=== PATIENT | male | born 1945 | race Caucasian/White ===

== ENCOUNTER 2017-12-15 11:07 | Inpatient (IN) ==
--- NOTE | 2017-12-15 11:23 | Anesthesia Evaluation PreOp ---
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: Syncope (Dizziness & passing out spells approx 5 weeks ago), Other (Chronic Pain/Neuropathy maintained on Lyrica, Flexeril) Other Medical History: GERD (maintained on Omeprazole), Other (VERY Hard of Hearing) Anesthesia History: No Prior Anesthetic Complications, Past Anesthesia (RLE Thrombectomy 07/2013, L-Total shoulder 1991, L-CTR, R-hand fracture, L-Fem-Pop, R-Fem-AK Pop bypass w/ PTFE, FEm-Pop 04/2015, Hernia repairs) Alcohol Use: none Drug use: none Medications and Allergies Albuterol Sulfate [Albuterol Inhaler] 2 puff IH Q4HR PRN 04/29/15 [History] Cholecalciferol (D-3) 1,000 unit PO DAILY 04/29/15 [History] Omeprazole [PriLOSEC] 20 mg PO DAILY 04/29/15 [History] Pregabalin [Lyrica] 200 mg PO TID PRN 04/29/15 [History] Albuterol Neb [Proventil Neb] 2.5 mg IH Q6H PRN 03/22/17 [History] Budesonide/Formoterol 80/4.5 [Symbicort 80/4.5] 1 puff IH BID 03/22/17 [History ] Cyclobenzaprine [Flexeril] 10 mg PO TID PRN 03/22/17 [History] Fluticasone Propionate Nasal [Flonase] 2 spr NS DAILY 03/22/17 [History] Lidocaine 4% CRM (LMX) [Lmx 4] 1 gm TP ONCE 03/22/17 [History] Metoprolol [Lopressor] 25 mg PO BID 03/22/17 [History] OxyCODONE Immed Rel [Roxicodone 10 MG] 10 mg PO 1200 03/22/17 [History] OxyCODONE Immed Rel [Roxicodone 10 MG] 20 mg PO QAM 03/22/17 [History] OxyCODONE Immed Rel [Roxicodone 10 MG] 20 mg PO QPM 03/22/17 [History] Phenazopyridine HCl [Pyridium] 200 mg PO TIDAC PRN #30 tab 03/22/17 [Rx] Pyridoxine (B-6) [Vitamin B-6] 50 mg PO DAILY 03/22/17 [History] Simvastatin [Zocor] 40 mg PO HS 03/22/17 [History] Tamsulosin [Flomax] 0.4 mg PO DAILY 03/22/17 [History] hydroCHLOROthiazide [Hydrochlorothiazide] 12.5 mg PO BID 03/22/17 [History] 3 Allergy/AdvReac Type Severity Reaction Status Date / Time Erythromycin Base Allergy See Verified 03/22/17 12:46 Comments Hydromorphone [From Dilaudid] AdvReac Mild LOWERS Verified 04/29/15 07:19 OXYGEN morphine AdvReac Mild Shakiness Verified 04/29/15 07:19 - Meds/Allergy Pre-op Review Medications Reviewed: Yes Allergies Reviewed: Yes Beta Blockers on Current Med List: Yes (Metoprolol) If Beta Blockers taken, Date/Time (Last Dose taken): 12/15/2017 @ 0700 Anesthesia Results - Labs Laboratory Tests 12/13/17 12/13/17 12/13/17 14:33 14:33 14:33 WBC 5.4 Hgb 13.2 Hct 41.4 Plt Count 188 PT 12.1 INR 1.1 APTT 31.7 Sodium 136 Potassium 4.1 Chloride 98 Carbon Dioxide 34 H BUN 10 Creatinine 0.92 Est GFR (Non-Af Amer) > 60 Glucose 105 - Imaging EKG: image reviewed (62bpm - SINUS RHYTHM Electronically Signed On 03-24-2017 6: 10:42 EDT by Kurt Ruffin DO) Anesthesia Exam O2 Sat Height 1.8 m Weight 75.75 kg O2 Sat Vital Signs Temp Pulse Resp BP Pulse Ox 98.1 F 86 18 138/80 94 12/15/17 11:26 12/15/17 11:26 12/15/17 11:26 12/15/17 11:26 12/15/17 11:26 Height: 5'11" Weight: 167# BMI = 23 NPO (# of Hours): MNOc - HEENT Pupil (Motor): Pupils equal, EOMI Mallampati: I Teeth: Edentulous Oral Opening: Greater than 3 - 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 SETTER LOC: Oriented LENS MOLD SETTER Motor: Normal RUE, Normal LUE, Normal RLE, Normal LLE, Normal Face LENS MOLD SETTER Sensory: Normal: RUE, LUE, RLE, LLE, Face - Cardiac Rhythm: Regular Murmur: None - Pulmonary Breath Sounds: bilateral Clear (Appreciably Diminished throughout) Respiratory Effort: Symmetrical Anesthesia Assess/Plan ASA Score: 3 (PAD, Smoker, HTN, Chol) Modified Rm Scale for Level of Consciousness: Cooperative, oriented, and tranquil Anesthetic Plan: General Autologous Blood: Yes Monitoring Plan: Standard Monitors, A-Line Recovery Plan: PACU Anes Supervising Prov Stmt: Pt seen/evaluated, R&B Discussed, questions answered and consent obtained. Zoie Ferrera MD
[2017-12-15] MEDS ORDERED: CeFAZolin Syr 2,000MG/20 ML 2,000 MG/20 ML SYRINGE IVPB ONE (11:55)
[2017-12-15] MEDS ORDERED: Albuterol 2.5 MG/3 ML NEBULIZER IH ONE (11:56)
[2017-12-15] MEDS ORDERED: Ringers Solution, Lactated 1,000 ML IVC SCH (12:00)
[2017-12-15] MEDS ORDERED: Plasma-Lyte A (PH 7.4) 1,000 ML IVC SCH (12:00)
[2017-12-15] MEDS ORDERED: Pregabalin 75 MG CAPSULE PO ONE (12:18)
[2017-12-15] MEDS ORDERED: Acetaminophen IV 1,000 MG/100 ML INFUS..BTL IVPB ONE (12:18)
[2017-12-15] MEDS ORDERED: Famotidine 20 MG/2 ML VIAL IVP ONE (12:18)
[2017-12-15] MEDS ORDERED: Heparin 1,000 UNITS/500 mL 500 ML ONE (12:49)
--- NOTE | 2017-12-15 13:26 | History & Physical Report ---
Date of Encounter: 12/15/17 Time of Encounter: 13:25 24 Hour HP Update - Instructions Instructions: If the History and Physical is less than 30 days old and was completed prior to A.M. admission and or procedure and has NOT been updated on calendar day of procedure please complete this update prior to performing procedure. - Update Patient reports changes in Medical Condition: No Changes in examination, assessment, or condition: No Changes in Medication: No Preop tests/diagnostics Reviewed: Yes Surgery Remains Indicated: Yes Consent for Planned Operative Procedure(s) Verified: Yes - Pre-Operative Checklist Preoperative Checklist Indicated: Yes Prophylactic Antibiotic Ordered: Yes Home Medications Include Beta Kyra: Yes Beta Kyra Taken Today (Day of Surgery): Yes Beta Kyra Taken Yesterday (Day Prior to Surgery): Yes Is VTE Prophylaxis Indicated?: Yes
[2017-12-15] MEDS ORDERED: Lidocaine -MPF 4% 5 ML AMPUL ONE (13:37)
[2017-12-15] MEDS ORDERED: *HR* Phenylephrine 10 MG/ML VIAL ONE ×2 (13:37→15:17)
[2017-12-15] MEDS ORDERED: *HR* FentaNYL (PF) 100 MCG/2 ML VIAL ONE ×3 (13:54→15:32)
[2017-12-15] MEDS ORDERED: *HR* Propofol 200 MG/20 ML VIAL IVP ONE (13:54)
[2017-12-15] MEDS ORDERED: *HR* Midazolam HCl 2 MG/2 ML VIAL ONE ×2 (13:54→18:05)
[2017-12-15] MEDS ORDERED: Lidocaine -MPF 2% 2 ML VIAL ONE (13:54)
[2017-12-15] MEDS ORDERED: *HR* Rocuronium Bromide 50 MG/5 ML VIAL ONE (14:00)
[2017-12-15] MEDS ORDERED: *HR* Succinylcholine 200 MG/10 ML VIAL IVP ONE (14:00)
[2017-12-15] MEDS ORDERED: Lidocaine 1% 20 ML MDV ONE (14:03)
[2017-12-15] MEDS ORDERED: *HR* OxyCODONE Immed Rel 5 MG TABLET PO PRN (14:15)
[2017-12-15] MEDS ORDERED: Ondansetron 4 MG/2 ML VIAL IVP ONE (14:15)
[2017-12-15] MEDS ORDERED: *HR* Labetalol 100 MG/20 ML MDV IVP PRN (14:15)
[2017-12-15] MEDS ORDERED: Heparin 1,000 UNITS/500 mL 1,000 ML ONE (14:19)
[2017-12-15] MEDS ORDERED: Dexamethasone 4 MG/ML VIAL ONE (14:24)
[2017-12-15] MEDS ORDERED: *HR* Heparin 5,000 UNIT/ML VIAL ONE ×2 (14:24→16:34)
[2017-12-15] MEDS ORDERED: Ondansetron 4 MG/2 ML VIAL ONE (14:24)
--- NOTE | 2017-12-15 14:24 | Anesthesia Procedures ---
Date of Encounter: 12/15/17 Time of Encounter: 14:00 Procedures: Anesthesia - Arterial Line Consent obtained: written consent Time out performed: Yes Sedation: Versed (mg): 2 Sedation: Fentanyl (mcg): 100 Local Anesthetic: Lidocaine 1% Size (Gauge): 20 Length (inches): 1 3/4 Technique Used: sterile prep, guide wire technique, direct puncture technique Post-Procedure: line taped into place Patient tolerated procedure: no complications Complications: none Site: Radial L Vitals: Vital Signs/O2 Sat/Glucose, Most Current Temp Pulse Resp BP Pulse Ox 12/15/17 14:07 73 16 135/82 96 12/15/17 13:56 80 18 127/86 97 12/15/17 12:28 18 138/80 94 12/15/17 11:26 98.1 F 86 18 138/80 94
[2017-12-15] MEDS ORDERED: EPHEDrine 50 MG/ML VIAL ONE ×2 (14:46→15:51)
[2017-12-15] MEDS ORDERED: *HR* PHENYLEPHRINE 1,000 MCG/10 ML SYRINGE IVP ONE (14:50)
[2017-12-15] MEDS ORDERED: Neostigmine Methylsulfate 3 MG/3 ML SYRINGE ONE (15:17)
--- NOTE | 2017-12-15 17:22 | Operative Note ---
Date of procedure: 12/15/17 Pre-op diagnosis: bilateral carotid stenosis Post-op diagnosis: same Procedure: left carotid endarterectomy with 8 Fr shunt and bovine patch angioplasty Complications: none Anesthesia: GETA Surgeon: Jacob Gillespie Was there an costumer assistant present: No Estimated blood loss (cc): 100 Specimen: 0 Condition: stable Disposition: PACU Procedure in Detail: History Dionisio Lin is a 72-year-old white male with known vascular disease. He is status post lower extremity intervention about 3 years ago. [facility] was found to have bilateral carotid artery stenosis of 80% or greater. He had had episodes where while driving or when parking his car he had syncope. He was referred to vascular surgery for further treatment. He now comes to surgery for the first of 2 carotid endarterectomies. Procedure After informed consent was obtained patient was taken the operating room. General endotracheal anesthesia was established under arterial line pressure monitoring. The left neck was then sterilely prepped and draped. A timeout protocol was observed. An oblique incision was then made parallel to the anterior border of the sternocleidomastoid muscle. Dissection was carried down to the carotid sheath. Selective control was obtained the carotid arteries. The bifurcation on the left neck area was low. 5000 units heparin were administered intravenously. After 3 minute delay the vessels were clamped with the internal carotid artery clamped first. Using an 11 blade knife and Lewis scissors an arteriotomy was made on the common carotid artery and then carried up into the internal carotid artery. An 8 Iraqi shunt was then inserted atraumatically. Patency of the shunt was confirmed by the use of intraoperative Doppler. Evaluation the plaque revealed a very thick and dense and calcific plaque that began at the common carotid but had its focus at the bulbar area and continued up into the internal carotid artery. It extended quite high into the internal carotid artery such that the arteriotomy needed to be extended distally and the distal control needed to be converted to a [place] shunt clamp device. The plaque was then endarterectomized in the standard fashion. The superior thyroid and external carotid artery were also endarterectomized. The bed of the vessel was inspected for any residual debris and all loose material was removed. A bovine pericardial patch was then utilized and a patch angioplasty was performed. This was sewn into position using 6-0 Prolene suture. Leaving a small space open on the suture line shunt was clamped divided and removed. The final few sutures were placed. The internal was allowed to backbleed and then was reclamped. The external carotid and common carotid were opened and then finally the internal was reopened. The patient tolerated this maneuver well and had no hemodynamic distress. Excellent pulsations and Doppler signals were identified throughout the carotid system. The wound was then irrigated and hemostasis achieved. A superficial cervical block using & Marcaine was performed. The wound was then closed in layers using absorbable suture. A dry sterile dressing was applied. The patient was extubated in the operating room. He was found to be neurologically intact. He was then transported from the operating room to the recovery room in stable condition.
[2017-12-15] MEDS ORDERED: *HR* Midazolam HCl 2 MG/2 ML VIAL IVP PRN (18:10)
--- NOTE | 2017-12-15 18:35 | Anesthesia Evaluation Post Op ---
Date of Encounter: 12/15/17 Time of Encounter: 18:35 - Vital Signs Vital Signs: Vital Signs/O2 Sat/Glucose, Most Current Temp Pulse Resp BP Pulse Ox 12/15/17 18:25 82 20 99/79 89 12/15/17 18:15 73 16 73/50 88 12/15/17 18:05 97.0 F L 86 20 107/81 88 12/15/17 17:55 79 18 97/57 90 12/15/17 17:45 80 18 91/49 92 12/15/17 17:35 97.1 F L 90 18 110/84 92 - Lungs Lungs: Clear Ascult./Percussion - Airway Airway: Non-obstructed - Cardiovascular Regular Rate - Mental Status Mental Status: Alert & Oriented, Answers Appropriately - Pain Pain Scale: 1 - Nausea Vomiting Nausea Vomiting: Not Present - Hydration Hydration: NPO - Discharge PostOp Status: Transfer Patient to floor
[2017-12-15] MEDS ORDERED: Naloxone 0.4 MG/ML INJ IVP PRN (19:17)
[2017-12-15] MEDS ORDERED: *HR* HYDROcodone/Acet 5/325 mg TABLET PO PRN (19:17)
[2017-12-15] MEDS ORDERED: Ondansetron 4 MG/2 ML VIAL IVP PRN (19:17)
[2017-12-15] MEDS ORDERED: Ipratropium/Albuterol Neb 3 ML IH PRN (19:17)
[2017-12-15] MEDS ORDERED: Acetaminophen 325 MG TABLET PO PRN (19:17)
[2017-12-15] MEDS ORDERED: *HR* Labetalol 20 MG/4 ML SYRINGE IVP PRN (19:17)
[2017-12-15] MEDS: *HR* Metoprolol 5 MG/5 ML VIAL IVP SCH (19:49)
[2017-12-15] MEDS: Budesonide/Formoterol 80/4.5 MDI IH SCH (20:06)
[2017-12-15] MEDS: *HR* OxyCODONE ER (12 HR) 20 MG TABLET PO SCH (20:14)
[2017-12-16] MEDS: *HR* Metoprolol 5 MG/5 ML VIAL IVP SCH ×3 (02:00→11:24)
[2017-12-16] MEDS: ceFAZolin 2,000 MG in 0.9 % Sodium Chloride 100 ML IVPB SCH ×2 (02:49→08:20)
[2017-12-16] MEDS: *HR* OxyCODONE ER (12 HR) 20 MG TABLET PO SCH ×2 (04:09→11:23)
[2017-12-16 04:41] LABS: Basophils % 0.3 %; Hematocrit 34.8 % (37.5-50.1); Immature Granulocytes % 0.3 % (0-4); Lymphocytes # 0.4 K/mcL (0.6-4.6); Lymphocytes % 6.2 %; Mean Corpuscular HGB Conc 32.2 g/dL (31.6-35.5); Mean Corpuscular Hemoglobin 27.5 pg (28.0-33.3); Mean Corpuscular Volume 85.3 fL (83.0-100.0); Mean Platelet Volume 12.5 fL (9.4-12.4); Monocytes # 0.2 K/mcL (0.0-1.3); Monocytes % 3.2 %; Platelet Count 167 K/mcL (140-400); Red Blood Count 4.08 M/mcL (4.19-5.50); Red Cell Distribution Width 14.1 % (11.5-14.5)
[2017-12-16 04:43] LABS: Hemoglobin 11.2 g/dL (12.9-16.9)
[2017-12-16 04:55] LABS: BUN/Creatinine Ratio 14 (6-26); Blood Urea Nitrogen 13 mg/dL (8-23); Calcium 8.6 mg/dL (8.6-10.3); Carbon Dioxide 29 mEq/L (23-29); Chloride 97 mEq/L (98-107); Glucose 126 mg/dL (70-105); Osmolality,Calculated 274 (280-300); Sodium 131 mEq/L (136-145); eGFR For African Americans > 60 (> 60); eGFR For Non-African Americans > 60 (> 60)
[2017-12-16] MEDS ORDERED: hydroCHLOROthiazide 25 MG TABLET PO SCH (09:00)
[2017-12-16] MEDS ORDERED: Aspirin Enteric Coated 81 MG Tablet PO SCH (09:00)
[2017-12-16] MEDS: Budesonide/Formoterol 80/4.5 MDI IH SCH (10:53)
[2017-12-16 11:13] VITALS: BP 121/72
--- NOTE | 2017-12-16 13:47 | Discharge Summary ---
Date of Encounter: 12/16/17 Time of Encounter: 13:45 - Discharge Diagnosis (1) Bilateral carotid artery disease Priority: Primary Status: Acute Comments: Patient has symptomatic carotid artery disease. CT angiogram and demonstrated bilateral high-grade carotid stenoses. Patient had left carotid endarterectomy performed this admission. He will return in a few weeks for right carotid endarterectomy. (2) COPD (chronic obstructive pulmonary disease) Priority: Secondary Status: Chronic Comments: Patient has chronic COPD Qualifiers: COPD type: unspecified COPD Qualified Code(s): J44.9 - Chronic obstructive pulmonary disease, unspecified - Hospital Course Hospital course: Mr. Lin is a 72 year old male Symptomatic carotid artery disease. He has bilateral disease documented on duplex scan and CT angiogram from the [facility]. Patient had episodes of syncope. The left carotid was performed this hospitalization. He will need to return for right carotid endarterectomy. Patient had an uneventful postoperative course. He was felt fit for discharge on the afternoon of postoperative day #1. - Time Spent with Patient Total time spent providing and/or coordinating discharge services: - Discharge Medications Home Medications: Albuterol Sulfate [Albuterol Inhaler] 1 puff IH Q6H PRN 12/15/17 [History] Aspirin [Lo-Dose Aspirin EC] 81 mg PO DAILY 12/15/17 [History] Budesonide/Formoterol 80/4.5 [Symbicort 80/4.5] 2 puff IH BIDR 12/15/17 [ History] Clopidogrel [Plavix] 75 mg PO DAILY 12/15/17 [History] Cyclobenzaprine [Flexeril] 10 mg PO TID PRN 12/15/17 [History] Eszopiclone [Lunesta] 1 mg PO HS PRN 12/15/17 [History] Ipratropium/Albuterol Neb [Duoneb] 3 ml IH Q6HR PRN 12/15/17 [History] Metoprolol [Lopressor] 25 mg PO BID 12/15/17 [History] Oxycodone HCl [Oxycontin] 20 mg PO Q8H 12/15/17 [History] Pantoprazole Sodium [Protonix] 40 mg PO DAILY 12/15/17 [History] Simvastatin [Zocor] 40 mg PO HS 12/15/17 [History] Tamsulosin [Flomax] 0.4 mg PO DAILY 12/15/17 [History] hydroCHLOROthiazide [Hydrochlorothiazide] 12.5 mg PO DAILY 12/15/17 [History] Allergies/Adverse Reactions: 3 Allergy/AdvReac Type Severity Reaction Status Date / Time Erythromycin Base Allergy See Verified 03/22/17 12:46 Comments Hydromorphone [From Dilaudid] AdvReac Mild LOWERS Verified 04/29/15 07:19 OXYGEN morphine AdvReac Mild Shakiness Verified 04/29/15 07:19 Date of admission: 12/15/17 18:43 Primary care physician: [facility] Consults: None Procedure(s) Performed: Left carotid endarterectomy with bovine patch angioplasty Discharging clinician: Jacob Gillespie Anticipated date of discharge: 12/16/17 Exam Vital Signs, Last 4 Hours Temp Pulse Resp BP Pulse Ox 12/16/17 11:11 97.7 F 58 14 121/72 100 General: Present: Conversant, No Apparent Distress, Well developed, Well nourished HEENT: Present: Atraumatic, Normocephaly Neck: Absent: JVD, Midline deformity, Tracheal deviation Cardiac: Present: Reg Rate and Rhythm Lungs: Present: Decreased breath sounds Neuro: Present: Alert and responsive, No focal deficits noted, Cranial nerves grossly intact, Motor nerves grossly intact, Sensory nerves grossly intact Abdomen: Present: Soft - Patient Status Disposition: Home, Self-Care Condition: Good Functional capacity at discharge: independent ambulation Overall status at discharge: patient is progressing back to baseline - Discharge Instructions Follow Up With: [facility],PCP [Primary Care Provider] - 12/23/17 10:30 am Jacob Gillespie MD [Partnered Physician] - 01/04/18 9:30 am Additional Instructions: Use ice pack on the left neck incision for next 2 days. Use incentive spirometer at home for the next 2 weeks. Use 10 times an hour while awake. No lifting greater than 10 pounds. No manual labor. No driving. - Diet and Activity Activity: increase activity as tolerated Diet: advance to your usual diet - VTE Documentation of Mechanical Device: Intermittent pneumatic compression device
== END 2017-12-16 16:33 | disposition home or self-care (01) | DRG 39 ==
LOC: SAMDAY 11:07 → 2NNU 18:43
PROVIDERS: ADMIT Surgery Vascular Surgery; ATTEND Surgery Vascular Surgery

== ENCOUNTER 2018-01-17 09:51 | Inpatient (IN) ==
[2018-01-17] MEDS ORDERED: Albuterol 2.5 MG/3 ML NEBULIZER IH ONE (10:19)
[2018-01-17] MEDS ORDERED: CeFAZolin Syr 2,000MG/20 ML 2,000 MG/20 ML SYRINGE IVPB ONE (10:19)
[2018-01-17] MEDS ORDERED: Ringers Solution, Lactated 1,000 ML IVC SCH (10:30)
[2018-01-17] MEDS ORDERED: Famotidine 20 MG/2 ML VIAL IVP ONE (10:47)
[2018-01-17] MEDS ORDERED: Acetaminophen IV 1,000 MG/100 ML INFUS..BTL IVPB ONE (10:48)
[2018-01-17] MEDS ORDERED: Pregabalin 75 MG CAPSULE PO ONE (10:48)
--- NOTE | 2018-01-17 11:00 | Anesthesia Evaluation PreOp ---
Date of Encounter: 01/17/18 Time of Encounter: 10:59 - Past History Alcohol Use: none, occasionally Drug use: none Medications and Allergies Albuterol Sulfate [Albuterol Inhaler] 1 puff IH Q6H PRN 12/15/17 [History] Aspirin [Lo-Dose Aspirin EC] 81 mg PO DAILY 12/15/17 [History] Budesonide/Formoterol 80/4.5 [Symbicort 80/4.5] 2 puff IH BIDR 12/15/17 [ History] Clopidogrel [Plavix] 75 mg PO DAILY 12/15/17 [History] Cyclobenzaprine [Flexeril] 10 mg PO TID PRN 12/15/17 [History] Ipratropium/Albuterol Neb [Duoneb] 3 ml IH Q6HR PRN 12/15/17 [History] Metoprolol [Lopressor] 25 mg PO BID 12/15/17 [History] Oxycodone HCl [Oxycontin] 20 mg PO Q8H PRN 12/15/17 [History] Pantoprazole Sodium [Protonix] 40 mg PO DAILY 12/15/17 [History] Simvastatin [Zocor] 40 mg PO HS 12/15/17 [History] Tamsulosin [Flomax] 0.4 mg PO DAILY 12/15/17 [History] 3 Allergy/AdvReac Type Severity Reaction Status Date / Time Erythromycin Base Allergy See Verified 01/17/18 10:39 Comments morphine AdvReac Mild Shakiness Verified 01/17/18 10:39
[2018-01-17] MEDS ORDERED: Heparin 1,000 UNITS/500 mL 500 ML ONE ×2 (11:16→11:34)
[2018-01-17] MEDS ORDERED: ceFAZolin 1,000 MG, Sodium Chloride IRRigation 1,000 ML IR ONE (11:25)
[2018-01-17] MEDS ORDERED: Lidocaine 1% 20 ML MDV ONE (11:34)
--- NOTE | 2018-01-17 11:40 | History & Physical Report ---
Date of Encounter: 01/17/18 Time of Encounter: 11:39 24 Hour HP Update - Instructions Instructions: If the History and Physical is less than 30 days old and was completed prior to A.M. admission and or procedure and has NOT been updated on calendar day of procedure please complete this update prior to performing procedure. - Update Patient reports changes in Medical Condition: No Changes in examination, assessment, or condition: No Changes in Medication: No Preop tests/diagnostics Reviewed: Yes Surgery Remains Indicated: Yes Consent for Planned Operative Procedure(s) Verified: Yes - Pre-Operative Checklist Preoperative Checklist Indicated: Yes Prophylactic Antibiotic Ordered: Yes Home Medications Include Beta Kyra: Yes Beta Kyra Taken Today (Day of Surgery): Yes Beta Kyra Taken Yesterday (Day Prior to Surgery): Yes Is VTE Prophylaxis Indicated?: Yes
[2018-01-17] MEDS ORDERED: EPHEDrine 50 MG/ML VIAL ONE (12:17)
[2018-01-17] MEDS ORDERED: *HR* FentaNYL (PF) 100 MCG/2 ML VIAL ONE ×2 (12:25→15:04)
[2018-01-17] MEDS ORDERED: *HR* Labetalol 20 MG/4 ML SYRINGE IVP PRN ×2 (12:29→16:31)
[2018-01-17] MEDS ORDERED: *HR* OxyCODONE Immed Rel 5 MG TABLET PO PRN (12:29)
[2018-01-17] MEDS ORDERED: *HR* FentaNYL (PF) 100 MCG/2 ML VIAL IVP PRN (12:29)
[2018-01-17] MEDS ORDERED: *HR* Propofol 200 MG/20 ML VIAL IVP ONE (15:04)
[2018-01-17] MEDS ORDERED: *HR* PHENYLEPHRINE 1,000 MCG/10 ML SYRINGE IVP ONE (15:04)
[2018-01-17] MEDS ORDERED: *HR* Phenylephrine 10 MG/ML VIAL ONE (15:04)
[2018-01-17] MEDS ORDERED: *HR* Heparin 5,000 UNIT/ML VIAL ONE ×2 (15:04)
[2018-01-17] MEDS ORDERED: Lidocaine -MPF 2% 2 ML VIAL ONE (15:04)
[2018-01-17] MEDS ORDERED: *HR* Succinylcholine 200 MG/10 ML VIAL IVP ONE (15:04)
[2018-01-17] MEDS ORDERED: *HR* Midazolam HCl 2 MG/2 ML VIAL ONE (15:04)
[2018-01-17] MEDS ORDERED: *HR* Remifentanil 2 MG VIAL IVP ONE (15:04)
[2018-01-17] MEDS ORDERED: Lidocaine -MPF 4% 5 ML AMPUL ONE (15:04)
[2018-01-17] MEDS ORDERED: Ondansetron 4 MG/2 ML VIAL ONE (15:05)
--- NOTE | 2018-01-17 15:13 | Operative Note ---
Date of procedure: 01/17/18 Pre-op diagnosis: right carotid stenosis Post-op diagnosis: same Procedure: right carotid endrterectomy with 10 Fr shunt and bovine pericardial patch angioplasty Complications: 0 Anesthesia: GETA Surgeon: Jacob Gillespie Was there an malt specifications control assistant present: No Estimated blood loss (cc): 250 Specimen: 0 Condition: stable Disposition: PACU Procedure in Detail: History Dionisio Lin is a 72-year-old white male who was identified as having high- grade carotid artery disease bilaterally. He is undergone a left carotid endarterectomy approximately 5 weeks ago. He now returns for the right carotid endarterectomy. He has had no new neurologic symptoms. Procedure After informed consent was obtained the patient was taken to the operating room. General endotracheal anesthesia was established under arterial line pressure monitoring. The right neck was sterilely prepped and draped. A timeout protocol was observed. An oblique incision was made paralleling the anterior border of sternocleidomastoid muscle. Dissection was carried down to reveal the carotid artery. Carotid artery was diffusely disease. The degree of calcific plaque extended much more proximally and distally then indicated on the CT scan. This then therefore lead to a more extensive dissection both proximally and distally in order to secure an appropriate endpoint. After this more wide mobilization was accomplished 5000 units of heparin were administered intravenously. After 3 minutes delay the vessels were clamped with the internal carotid artery clamped first. Using an 11 blade knife and Lewis scissors the artery was opened. The plaque in the vessel was markedly calcific. There was an area of intramural hemorrhage. It was impossible to place a shunt because of the diffuse nature of the plaque and the lumen could not be safely identified. Therefore the endarterectomy was begun immediately. The bulbar area and internal carotid artery were endarterectomized. Distal common carotid artery was endarterectomized as well in order to establish an appropriate inflow lumen. After this was performed a 10 [place] shunt was then inserted and patency was confirmed by the use of intraoperative Doppler. With the shunt in position the endarterectomy was continued. The arteriotomy was extended proximally with repositioning of the clamp. The endarterectomy was also carried distally as well. The bed of the vessel was then inspected very carefully for residual debris or particles of calcium. After these were all removed and the area was copiously irrigated with heparinized saline a bovine pericardial patch was sewn into position. 2 6-0 Prolene sutures were used for this procedure. Leaving a small space open on the suture line the 10 [place] shunt was clamped and divided and removed. The final few sutures were then placed. The internal was allowed to backbleed and was reclamped. The external carotid and common carotid were then opened and then finally the internal was reopened. Excellent pulsation was identified both by palpation and by Doppler. There was no hemodynamic distress with this maneuver. A superficial cervical block using half percent Marcaine was performed. The wound was then closed in layers using absorbable suture. No drains were placed. A dry sterile dressing was applied. The patient was extubated in the operating room and found to be neurologically intact. He was taken from the operating room to the recovery room in stable condition.
--- NOTE | 2018-01-17 16:04 | Anesthesia Evaluation Post Op ---
Date of Encounter: 01/17/18 Time of Encounter: 16:03 - Vital Signs Vital Signs: Vital Signs/O2 Sat, Most Current Temp Pulse Resp BP Pulse Ox 97.2 F L 74 20 139/72 93 01/17/18 15:58 01/17/18 15:58 01/17/18 15:58 01/17/18 15:58 01/17/18 15:58 - Lungs Lungs: Clear Ascult./Percussion - Airway Airway: Non-obstructed - Cardiovascular Regular Rate - Mental Status Mental Status: Alert & Oriented, Answers Appropriately - Pain Pain Scale: 0 Pain Scale used: Numeric (1 - 10) - Nausea Vomiting Nausea Vomiting: Not Present - Hydration Hydration: NPO, Lawler catheter - Discharge PostOp Status: Transfer Patient to floor
[2018-01-17] MEDS ORDERED: Ondansetron 4 MG/2 ML VIAL IVP PRN (16:31)
[2018-01-17] MEDS ORDERED: Naloxone 0.4 MG/ML INJ IVP PRN (16:31)
[2018-01-17] MEDS ORDERED: Acetaminophen 325 MG TABLET PO PRN (16:31)
[2018-01-17] MEDS ORDERED: Ipratropium/Albuterol Neb 3 ML IH PRN (16:31)
[2018-01-17] MEDS ORDERED: *HR* OxyCODONE ER (12 HR) 20 MG TABLET PO PRN (16:31)
[2018-01-17] MEDS ORDERED: CeFAZolin Pre 2,000 MG/100 ML 2,000 MG/100 ML BAG IVPB SCH (18:30)
[2018-01-17] MEDS: Budesonide/Formoterol 80/4.5 MDI IH SCH (22:30)
[2018-01-17] MEDS: *HR* HYDROcodone/Acet 5/325 mg TABLET PO PRN (23:42)
[2018-01-18 05:03] LABS: Basophils % 0.6 %; Eosinophils # 0.2 K/mcL (0.0-0.6); Eosinophils % 4.5 %; Immature Granulocytes % 0.4 % (0-4); Lymphocytes # 0.7 K/mcL (0.6-4.6); Mean Corpuscular HGB Conc 32.3 g/dL (31.6-35.5); Mean Corpuscular Hemoglobin 27.5 pg (28.0-33.3); Mean Platelet Volume 12.9 fL (9.4-12.4); Monocytes # 0.4 K/mcL (0.0-1.3); Monocytes % 7.9 %; Neutrophils # 3.4 K/mcL (1.6-8.9); Platelet Count 132 K/mcL (140-400); Red Blood Count 3.53 M/mcL (4.19-5.50); Red Cell Distribution Width 13.7 % (11.5-14.5); Segmented Neutrophils % 72.6 %
[2018-01-18 05:16] LABS: Hemoglobin 9.7 g/dL (12.9-16.9)
[2018-01-18 05:22] LABS: BUN/Creatinine Ratio 13 (6-26); Blood Urea Nitrogen 10 mg/dL (8-23); Calcium 8.4 mg/dL (8.6-10.3); Carbon Dioxide 32 mEq/L (23-29); Chloride 99 mEq/L (98-107); Glucose 89 mg/dL (70-105); Osmolality,Calculated 279 (280-300); Potassium 4.3 mEq/L (3.5-5.1); Sodium 135 mEq/L (136-145); eGFR For African Americans > 60 (> 60); eGFR For Non-African Americans > 60 (> 60)
[2018-01-18] MEDS: Budesonide/Formoterol 80/4.5 MDI IH SCH (07:19)
[2018-01-18] MEDS: *HR* HYDROcodone/Acet 5/325 mg TABLET PO PRN (08:31)
[2018-01-18] MEDS ORDERED: Aspirin Enteric Coated 81 MG Tablet PO SCH (09:00)
[2018-01-18 16:09] VITALS: BP 166/82
--- NOTE | 2018-01-18 17:22 | Discharge Summary ---
Orders not resulted at time of discharge: Pending orders 01/17/18 Red Blood Cells [BBK] Routine Date of Encounter: 01/18/18 Time of Encounter: 17:20 - Discharge Diagnosis (1) Bilateral carotid artery disease Priority: Primary Status: Acute Comments: Patient is status post right carotid endarterectomy during this hospitalization. Patient was previously admitted about 5 weeks ago for left carotid endarterectomy. (2) COPD (chronic obstructive pulmonary disease) Priority: Secondary Status: Chronic Comments: Patient has chronic COPD Qualifiers: COPD type: unspecified COPD Qualified Code(s): J44.9 - Chronic obstructive pulmonary disease, unspecified (3) Tobacco abuse Priority: Secondary Status: Chronic Comments: Patient has history of tobacco abuse - Hospital Course Hospital course: Mr. Lin is a 72 year old male With known severe peripheral vascular and cerebrovascular disease. He is status post a left carotid endarterectomy approximately 5 weeks ago. The patient was admitted at this time for right carotid endarterectomy. Patient was taken to the operating room yesterday and under general endotracheal anesthesia underwent a right carotid endarterectomy. He was found to have severe and diffuse calcific disease. He had very complex plaque present that required a significant amount of the endarterectomy to be performed before a shunt was able to be placed due to the diffuse nature of the disease. The patient otherwise tolerated the procedure well. He had no periprocedural complications. The patient was judged to be stable and appropriate for discharge on the afternoon of postoperative day #1. - Time Spent with Patient Total time spent providing and/or coordinating discharge services: - Discharge Medications Home Medications: Albuterol Sulfate [Albuterol Inhaler] 1 puff IH Q6H PRN 12/15/17 [History] Aspirin [Lo-Dose Aspirin EC] 81 mg PO DAILY 12/15/17 [History] Budesonide/Formoterol 80/4.5 [Symbicort 80/4.5] 2 puff IH BIDR 12/15/17 [ History] Clopidogrel [Plavix] 75 mg PO DAILY 12/15/17 [History] Cyclobenzaprine [Flexeril] 10 mg PO TID PRN 12/15/17 [History] Ipratropium/Albuterol Neb [Duoneb] 3 ml IH Q6HR PRN 12/15/17 [History] Metoprolol [Lopressor] 25 mg PO BID 12/15/17 [History] Oxycodone HCl [Oxycontin] 20 mg PO Q8H PRN 12/15/17 [History] Pantoprazole Sodium [Protonix] 40 mg PO DAILY 12/15/17 [History] Simvastatin [Zocor] 40 mg PO HS 12/15/17 [History] Tamsulosin [Flomax] 0.4 mg PO DAILY 12/15/17 [History] Eszopiclone [Lunesta] 1 - 2 mg PO HS PRN 01/17/18 [History] Allergies/Adverse Reactions: 3 Allergy/AdvReac Type Severity Reaction Status Date / Time Erythromycin Base Allergy See Verified 01/17/18 10:39 Comments morphine AdvReac Mild Shakiness Verified 01/17/18 10:39 Date of admission: 01/17/18 16:27 Primary care physician: PCP NONE Consults: None Procedure(s) Performed: Right carotid endarterectomy with bovine pericardial patch angioplasty Discharging clinician: Jacob Gillespie Anticipated date of discharge: 01/18/18 Exam Vital Signs, Last 4 Hours Temp Pulse Resp BP Pulse Ox 01/18/18 16:08 98.5 F 78 18 166/82 99 General: Present: Conversant, No Apparent Distress HEENT: Present: Trachea midline Neck: Present: Other (mild right neck swelling consistent with postoperative hematoma/seroma). Absent: JVD, Midline deformity, Tracheal deviation Cardiac: Present: Reg Rate and Rhythm, Normal S1 and S2 Lungs: Present: Decreased breath sounds Neuro: Present: Alert and responsive, No focal deficits noted, Cranial nerves grossly intact, Motor nerves grossly intact, Sensory nerves grossly intact Vascular: Present: Surgical incisions (Right neck incision is clean and dry area ) Skin: Present: No rashes noted on visualized skin - Patient Status Disposition: Home, Self-Care Condition: Good Functional capacity at discharge: independent ambulation Overall status at discharge: patient is progressing back to baseline - Discharge Instructions Instructions: Carotid Endarterectomy (DC), Peripheral Vascular Disorders (DC) [facility] [Non-Partnered Physician] - 01/25/18 11:00 am (this is with the brown team, Fax records) Jacob Gillespie MD [Partnered Physician] - 02/01/18 3:30 pm Additional Instructions: Apply icepack to right neck incision for the next 48 hours. Keep right neck incision dry for 5 days postoperatively. No automobile driving. No lifting greater than 10 pounds. No manual labor. Continue usual home medications. - Diet and Activity Activity: increase activity as tolerated Diet: low fat, low cholesterol (Patient to ambulate in the hallways prior to discharge. Provide patient with ice pack to use at home.) - VTE Documentation of Mechanical Device: Intermittent pneumatic compression device
== END 2018-01-18 17:57 | disposition home or self-care (01) | DRG 39 ==
LOC: SAMDAY 09:51 → 2NNU 16:27
PROVIDERS: ADMIT Surgery Vascular Surgery; ATTEND Surgery Vascular Surgery